=== PATIENT | female | born 1995 | race Caucasian/White ===

== ENCOUNTER 2017-11-12 15:18 | Outpatient (CLI) | payer BC, SELFPAY ==
[2017-11-12 15:47] VITALS: BMI 25.1
[2017-11-12 15:50] VITALS: BP 100/62; PULSE 119; RESP 20; TEMP 36.9; O2SAT 99
[2017-11-12 18:40] VITALS: BP 113/68; PULSE 113; RESP 18; TEMP 37.4; O2SAT 100
== END 2017-11-12 18:40 | disposition home or self-care (01) ==
LOC: INF 15:22
PROVIDERS: PCP Family Medicine; Visit Provider Family Medicine
DX: R19.7 Diarrhea, unspecified (principal)
CPT/HCPCS: 96360

== ENCOUNTER → 2020-10-14 16:52 | Outpatient (CLI) | payer BC, SELFPAY ==
[2020-10-14 18:14] LABS: Free T4 (Free Thyroxine) 1.69 ng/dl (0.78-2.19)
[2020-10-14 18:29] LABS: Thyroid Stimulating Hormone 0.15 uIU/mL (0.465-4.68)
== END ==
PROVIDERS: Visit Provider Physician Assistant
DX: E03.9 Hypothyroidism, unspecified (principal)
CPT/HCPCS: 36415; 84439; 84443

== ENCOUNTER → 2021-03-01 12:08 | Outpatient (CLI) | payer BC, SELFPAY ==
[2021-03-01 15:06] LABS: HCG,Quantitative < 2 mIU/ml (0-5.42)
[2021-03-02 09:54] LABS: Progesterone 0.1 ng/mL (.)
== END ==
DX: Z32.00 Encounter for pregnancy test, result unknown (principal)
CPT/HCPCS: 36415; 84144; 84702

== ENCOUNTER → 2021-09-05 06:45 | Outpatient (CLI) | payer BC, SELFPAY ==
[2021-09-05 07:40] LABS: HCG,Quantitative 432 mIU/ml (0-5.42)
== END ==
PROVIDERS: Visit Provider Obstetrics & Gynecology Reproductive Endocrinology
DX: Z32.00 Encounter for pregnancy test, result unknown (principal)
CPT/HCPCS: 36415; 84702

== ENCOUNTER → 2021-09-09 07:05 | Outpatient (CLI) | payer BC, SELFPAY ==
[2021-09-09 07:52] LABS: HCG,Quantitative 1544 mIU/ml (0-5.42)
== END ==
PROVIDERS: Visit Provider Obstetrics & Gynecology Reproductive Endocrinology
DX: Z32.01 Encounter for pregnancy test, result positive (principal)
CPT/HCPCS: 36415; 84702

== ENCOUNTER 2023-09-06 07:47 | Outpatient (CLI) | payer BC, SELFPAY ==
[2023-09-06 08:45] LABS: HCG,Quantitative 6448 mIU/ml (0-5.42)
== END 2023-09-06 23:59 ==
LOC: LAB 07:48
PROVIDERS: PCP Family Medicine; Visit Provider Obstetrics & Gynecology Reproductive Endocrinology
DX: Z32.02 Encounter for pregnancy test, result negative (principal)
CPT/HCPCS: 36415; 84702

== ENCOUNTER 2024-06-30 07:28 | Outpatient (CLI) | payer BC, SELFPAY ==
--- NOTE | 2024-06-30 | US_ITS ---
FINAL REPORT TECHNIQUE: Sonographic images of the right upper quadrant were obtained. CLINICAL HISTORY: ELEVATED LIVER FUNCTION LEVELS COMPARISON: None FINDINGS: PANCREAS: Unremarkable. LIVER: There is fatty infiltration of the liver. No focal hepatic lesion. No intrahepatic biliary ductal dilatation. GALLBLADDER: The gallbladder is small and contracted. No gallstones are identified.. No gallbladder wall thickening or pericholecystic fluid. COMMON DUCT: 2 mm. Normal for age. RIGHT KIDNEY: The right kidney measures 9.9 cm. There is no hydronephrosis, mass, or stone. FREE FLUID: None. IMPRESSION: Fatty liver. Reviewed, Interpreted and Dictated by Wes Medeiros MD Transcribed by Lizeth Lambert Authenticated and [facility]
== END 2024-06-30 23:59 | disposition home or self-care (01) ==
LOC: RAD 07:29
PROVIDERS: PCP Family Medicine; Visit Provider Physician Assistant
DX: R79.89 Other specified abnormal findings of blood chemistry (principal)
CPT/HCPCS: 76705

== ENCOUNTER 2024-07-10 12:08 | Outpatient (CLI) | payer BC, SELFPAY ==
[2024-07-10 12:29] LABS: Basophils % 0.2 % (0.1-2.0); Eosinophils % 0.5 % (0.1-12.0); Hematocrit 39.7 % (37.0-47.0); Hemoglobin 12.8 g/dL (12.2-16.2); Lymphocytes # 1.9 K/mm3 (0.7-4.5); Lymphocytes % 32.2 % (10-50); Mean Corpuscular HGB Conc 32.2 g/dL (31.8-35.4); Mean Corpuscular Hemoglobin 28.8 pg (27.0-31.2); Mean Corpuscular Volume 89.4 fl (81-99); Mean Platelet Volume 9.3 fl (7.4-10.4); Monocytes # 0.6 K/mm3 (0.1-1.0); Monocytes % 10.3 % (1.7-9.3); Neutrophils # 3.3 K/mm3 (1.8-7.8); Neutrophils % 56.5 % (37.0-80.0); Platelet Count 354 K/mm3 (142-424); Red Blood Count 4.44 M/mm3 (4.20-5.40); White Blood Count 5.8 K/mm3 (4.8-10.8)
[2024-07-10 12:44] LABS: Ammonia < 9 umol/L (9-30)
[2024-07-10 13:28] LABS: Albumin Level 1.7 g/dl (3.5-5.0); Chloride 104 mmol/L (98-107)
[2024-07-10 13:29] LABS: Potassium 4.4 mmoL/L (3.5-5.1); Sodium 135 mmol/L (136-145)
[2024-07-10 13:31] LABS: Alanine Aminotransferase 173 U/L (12-78); Alkaline Phosphatase 144 U/L (38-126); Anion Gap 6.4 mEq/L (5-15); Aspartate Amino Transferase 125 U/L (14-36); Blood Urea Nitrogen 11 mg/dl (7-17); Carbon Dioxide 29 mmol/L (22.0-30.0); Estimated Glomerular Filt Rate 148 ml/min (>60); GFR (African American) 179 ML/MIN (>60)
[2024-07-10 13:32] LABS: Albumin/Globulin Ratio 0.8 (1.1-1.8); Calcium 7.1 mg/dl (8.4-10.2); Globulin 2.1 g/dL (1.3-3.2); Glucose 143 mg/dl (74-100); Iron 74 ug/dL (37-170); Total Protein,Serum 3.8 g/dl (6.3-8.2)
[2024-07-10 13:35] LABS: Bilirubin,Total < 0.1 mg/dl (0.2-1.3)
[2024-07-10 13:41] LABS: Total Iron Binding Capacity 233 ug/dL (265-497)
[2024-07-10 14:08] LABS: Ferritin 13.9 ng/ml (6.24-137)
[2024-07-11 08:25] LABS: Immunoglobulin A, Qn 349 mg/dL (87-352); Immunoglobulin G, Qn 543 mg/dL (586-1602); Immunoglobulin M, Qn 131 mg/dL (26-217)
[2024-07-11 12:10] LABS: Actin (Smooth Muscle) Antibody 14 Units (0-19); Mitochondrial (M2) Antibody <20.0 Units (0.0-20.0)
[2024-07-11 13:08] LABS: Angiotensin Converting Enzyme 81 U/L (14-82); Antinuclear Antibodies (ANA) Negative (Negative)
[2024-07-11 14:09] LABS: Deamidated Gliadin Abs, IgA >150 units (0-19); Deamidated Gliadin Abs, IgG >150 units (0-19); Liver-Kidney Microsomal Ab 1.1 Units (0.0-20.0); Tissue Transglutaminase IgA Ab >100 U/mL (0-3); Tissue Transglutaminase IgG Ab 6 U/mL (0-5)
[2024-07-12 00:08] LABS: ALT (SGPT) P5P 189 IU/L (0-40); AST (SGOT) P5P 119 IU/L (0-40); Alpha 2-Macroglobulins, Qn 147 mg/dL (110-276); Apolipoprotein A-1 80 mg/dL (116-209); Bilirubin, Total 0.1 mg/dL (0.0-1.2); Cholesterol, Total 104 mg/dL (100-199); Fibrosis Score 0.03 (0.00-0.21); GGT 19 IU/L (0-60); Glucose 158 mg/dL (70-99); Haptoglobin 131 mg/dL (33-278); NASH Score 0.59 (0.00-0.25); Steatosis Score 0.74 (0.00-0.40); Triglycerides 76 mg/dL (0-149)
[2024-07-12 15:17] LABS: Endomysial IgA Antibody Positive (Negative)
[2024-07-24 19:27] LABS: Alpha-1-Antitrypsin 181 mg/dL (100-188)
== END 2024-07-10 23:59 | disposition home or self-care (01) ==
LOC: LAB 12:10
PROVIDERS: PCP Family Medicine; Visit Provider Nurse Practitioner Family
DX: R79.89 Other specified abnormal findings of blood chemistry (principal)
CPT/HCPCS: 36415; 80053; 82103; 82104; 82140; 82164; 82728; 82784; 83516; 83540; 83550; 85025; 85610; 86038; 86255; 86256; 86376

== ENCOUNTER 2024-07-12 16:09 | Outpatient (CLI) | payer BC, SELFPAY ==
[2024-07-12 16:15] LABS: Adenovirus F 40/41, stool Not Detected (NotDetected); Astrovirus Not Detected (NotDetected); Campylobacter Not Detected (NotDetected); Clostridium Difficile A/B, PCR Not Detected (NotDetected); Cryptosporidium Not Detected (NotDetected); Cyclospora Cayetanesis Not Detected (NotDetected); Entamoeba histolytica Not Detected (NotDetected); Enteroaggregative E coli Not Detected (NotDetected); Enteropathogenic E coli Not Detected (NotDetected); Enterotoxigenic E coli Not Detected (NotDetected); Giardia lamblia Not Detected (NotDetected); Norovirus Not Detected (NotDetected); Plesimonas Shigalloides, PCR Not Detected (NotDetected); Rotavirus A Not Detected (NotDetected); Salmonella, PCR Not Detected (NotDetected); Sapovirus Not Detected (NotDetected); Shiga-like toxin E coli Not Detected (NotDetected); Shigella Enterovasive E coli Not Detected (NotDetected); Vibrio Cholerae Not Detected (NotDetected); Vibrio, PCR Not Detected (NotDetected); Yersinia Entercolitica, PCR Not Detected (NotDetected)
[2024-07-15 02:08] LABS: Calprotectin, Fecal 293 ug/g (0-120)
[2024-07-15 15:24] LABS: Pancreatic Elastase, Fecal 420 (>200)
== END 2024-07-12 23:59 | disposition home or self-care (01) ==
LOC: LAB 16:10
PROVIDERS: PCP Family Medicine; Visit Provider Nurse Practitioner Family
DX: R19.7 Diarrhea, unspecified (principal)
CPT/HCPCS: 82656; 83993; 87506

== ENCOUNTER 2024-07-26 09:30 | Day surgery (SDC) | payer BC, SELFPAY ==
[2024-07-24 17:02] VITALS: BMI 25.9
[2024-07-26 10:13] VITALS: BP 95/72; PULSE 71; RESP 18; O2SAT 100
[2024-07-26 10:26] LABS: POC Glucose,Bedside 99 (70-110)
[2024-07-26 11:43] LABS: Urine Pregnancy, HCG Qual. Negative (Negative)
--- NOTE | 2024-07-26 11:49 | EXP.ANES.CKL ---
[facility] Disclaimer: The information contained in this section may have been updated after the patient was seen, as this information can be updated by other users. Family History Grandfather Pancreatic cancer Other Cancer Social History (Updated 07/21/24 @ 10:13 by Kimberlee Leon RN) Smoking Status: Never smoker alcohol intake: never substance use type: denies use current occupational status: employed and student Travel in the last 8 weeks: None household members: spouse housing: house caffeine: Yes Have you lived/traveled outside US in past 30 days?: No Contact w/someone who lives/traveled outside US past 30 days?: No Exposure to someone with infectious disease in past 14 days?: No Do you have a fever (greater than 100.4 F or 38 C)?: No Have you tested positive for COVID-19: No Exposed to someone with COVID-19 in past 14 days?: No Do you have a sore throat?: No Do you have a cough?: No Do you have any weakness?: No Are you experiencing any nausea/vomitting?: No Do you have any diarrhea?: No Are you experiencing any unusual bleeding?: No Do you have any muscle aches/pain?: No Do you have any abdominal pain?: No Are you experiencing loss of taste or smell?: No [facility] Anesthesia Checklist Patient Identification Patient Identification: Verbal (Name & ) Structural Data Admitted From: Home Planned Operative Procedure/s: egd NPO Status Verified Time NPO: 00:00 Airway Assessment Mallampati Score:: Class II C-Spine Mobility Assessed: Yes TMJ Mobility Assessed: Yes Dentition: Good Dentition Neurological Assessment Level of Consciousness: Awake, Alert and Appropriate Anesthesia Plan Anesthesia Risk discussed: Yes Anesthesia Plan: Verified ASA Class: II Anesthesia Type: MAC
--- NOTE | 2024-07-26 11:56 | EXP.HP ---
History of Present Illness *Admission Date: 07/26/24 *Reason for visit:: Positive celiac serologies *History of present illness: Mrs. Pollack is a 29-year-old female with elevated liver chemistries. Subsequent labs showed strongly positive celiac serologies. She is here for diagnostic upper endoscopy with confirmatory duodenal biopsies. The examination is deemed medically necessary for endoscopy. The patient has been seen, interviewed and examined prior to the procedure by both myself and the anesthesia provider. [facility] Disclaimer: The information contained in this section may have been updated after the patient was seen, as this information can be updated by other users. Family History Grandfather Pancreatic cancer Other Cancer Social History (Updated 07/21/24 @ 10:13 by Kimberlee Leon RN) Smoking Status: Never smoker alcohol intake: never substance use type: denies use current occupational status: employed and student Travel in the last 8 weeks: None household members: spouse housing: house caffeine: Yes Have you lived/traveled outside US in past 30 days?: No Contact w/someone who lives/traveled outside US past 30 days?: No Exposure to someone with infectious disease in past 14 days?: No Do you have a fever (greater than 100.4 F or 38 C)?: No Have you tested positive for COVID-19: No Exposed to someone with COVID-19 in past 14 days?: No Do you have a sore throat?: No Do you have a cough?: No Do you have any weakness?: No Are you experiencing any nausea/vomitting?: No Do you have any diarrhea?: No Are you experiencing any unusual bleeding?: No Do you have any muscle aches/pain?: No Do you have any abdominal pain?: No Are you experiencing loss of taste or smell?: No Other Medical History Have you received the Flu Vaccine for this season: No Have you received the Pneumonia Vaccine: No Review of Systems Review of Systems Review of systems (narrative): Negative *Cardiovascular Comments: Negative *Gastrointestinal Comments: Negative *Genitourinary Comments: Negative *Musculoskeletal Comments: Negative *Neurologic Comments: Negative Meds Home Medications and Allergies Home Medications ?Medication ?Instructions ?Recorded ?Confirmed ?Type insulin lispro 100 unit/mL 1.1 unit SQ CONT Diabetes 12/28/17 07/26/24 History subcutaneous cartridge (Humalog U-100 Insulin) ferrous sulfate 27 mg iron tablet 27 mg PO DAILY 07/10/24 07/26/24 History levothyroxine 137 mcg tablet 137 mcg PO DAILY 07/10/24 07/26/24 History (Synthroid) vitamin#30 30 mg iron-10 30 cap PO DAILY 07/10/24 07/26/24 History mg iron-folic acid 1 mg-omg3 capsule spironolactone 25 mg tablet 25 mg PO DAILY 07/10/24 07/26/24 History (Aldactone) New Prescriptions to Start Prescriptions: Allergies Allergy/AdvReac Type Severity Reaction Status Date / Time No Known Allergies Allergy Verified 07/26/24 10:12 Exam Data for Last 24 hours Vital signs and Labs for Last 24 Hours: Pulse Resp BP Pulse Ox O2 Del Method 71 18 95/72 L 100 Room Air 07/26/24 10:13 07/26/24 10:13 07/26/24 10:13 07/26/24 10:13 07/26/24 10:13 Laboratory Results - last 24 hr 07/26/24 10:17: POC Glucose 99 07/26/24 10:20: Urine HCG, Qual Negative I & O for Last 24 hours: Intake & Output 07/23/24 07/24/24 07/25/24 07/26/24 23:59 23:59 23:59 23:59 Weight 137 lb *Routine HEENT Exam Head: Present normocephalic Eye: Present EOMI and PERRL ENT: Present mucous membranes moist *Routine Neck Exam Neck: Present supple *Routine Respiratory Exam Respiratory: Present CTA bilaterally *Routine Cardiovascular Exam Cardiovascular: Present RRR *Routine Abdominal Exam Abdominal: Present soft and normoactive bowel sounds; Absent tenderness *Routine Rectal Exam Rectal:: deferred *Routine Genitalia Exam Genitalia:: deferred *Routine Extremities Exam Extremities: Absent cyanosis, clubbing or edema *Routine Skin Exam Skin: Present warm; Absent rash *Routine Neurological Exam Neurological: Present alert and oriented X3 Assessment and Plan *Assessment and plan (1) Celiac disease: Status: Acute Category: Medical Code(s): K90.0 - Celiac disease (2) Diarrhea: Status: Acute Category: Medical Code(s): R19.7 - Diarrhea, unspecified Plan A/P: 1. Positive celiac serologies and new diagnosis of presumptive celiac disease is the preprocedural diagnosis. Confirmation with duodenal biopsies is warranted. The patient will be anesthetized/sedated using MAC sedation. The patient has been seen and examined. Cardiac and lung assessment prior to the examination is stable. Proceed with planned EGD
[2024-07-26 12:00] VITALS: O2SAT 99
--- NOTE | 2024-07-26 12:10 | HMH.PROCNOTE ---
[facility] Procedure Note Date: 07/26/24 Time: 12:20 Procedure Note:: Upper Endoscopy Procedure Report: Esophagogastroduodenoscopy with cold biopsies Endoscopost: Main Mendenhall II, MD Referring Physician: Pantera Jean MD Date of Procedure: July 26, 2024 Equipment: Olympus GIF 190 standard upper endoscope Sedation: MAC sedation Indications: Mrs. Pollack is a 29-year-old female here for diagnostic upper endoscopy. The patient is 3 months and had cholestasis of in the third trimester. Her liver chemistries have improved since childbirth. However, earlier last month, the liver chemistries increased again with AST 309, ALT 263 and alkaline phosphatase 140. 10 days later, these were 189, 195 and 133 respectively. Her viral hepatitis panel was negative. The patient has had diarrhea since the beginning of May which can be nocturnal. She was having 4-6 watery bowel movements daily. She reports no blood or mucus. She has had no melena, dyspepsia or dysphagia. Her fecal calprotectin was 293 (mildly elevated) and her stool elastase was 420 mcg/g (normal). Her PCR panel was negative. Her most recent liver chemistries were AST 119, ALT 173 and alkaline phosphatase 144 and this was on 07/10/2024. Hepatic fibrotic markers showed no hepatic fibrosis (stage F0). Her celiac testing showed marked elevation of her celiac serologies (positive anti-Endo mesial IgA antibody, tissue transglutaminase IgA greater than 100 nucleate and IgG antibody greater than 150 and gliadin IgA antibody greater than 150. Her smooth muscle antibody was 14 with mitochondrial antibody less than 20. Her CHRISTO was negative. She had normal IgA level. Procedure: Prior to the procedure, a history and physical exam was performed, and patient's medications and allergies were reviewed. The risks, benefits and alternatives of the sedation and procedure were discussed with the patient. All questions were answered and informed consent was obtained. The patient was brought to the procedure room. Patient identification and proposed procedure were verified by the physician and the nurse. The patient was placed in a left lateral decubitus position and the scope was passed under direct vision. Throughout the procedure, the patient's blood pressure, pulse, and oxygen saturations were monitored continuously. The upper GI endoscopy was accomplished without difficulty. The patient tolerated the procedure well. Findings: The scope was passed directly into the upper esophagus and advanced to the third portion of the duodenum. There was some scalloping of the conniventes in the post bulbar duodenum and biopsies were obtained. There was a micronodular appearance to the mucosa in the bulb and biopsies were obtained. This was highly characteristic of celiac disease. The scope was withdrawn through a normal pylorus and of the stomach. There was mild reticular pattern of the body and fundus consistent with very mild chronic gastritis chronic gastritis. Biopsies were taken along the lesser curvature to rule out H. pylori. Upon retroflexion there was a very small sliding 1 to 2 cm hiatal hernia. The scope was then withdrawn into the esophagus. There was no evidence of reflux esophagitis or Dial's. The remainder of the esophageal mucosa was normal. Impression: 1. Scalloping of duodenal conniventes with mucosal changes consistent with celiac disease?status post biopsies for confirmation 2. Very mild chronic gastritis Plan: I will follow-up the biopsies. I will refer to dietitian for gluten-free diet. I will discuss signs with the patient and family. Her autoimmune hepatitis serologies were normal. Her abdominal ultrasound showed some steatosis. Her transaminases are improving. She should have a clinical improvement with a gluten-free diet in terms of her diarrhea. She did have a mildly elevated fecal calprotectin which may be related to the celiac. There is a relationship between celiac and IBD. If her diarrhea persist, I would consider colonoscopy as well.
[2024-07-26 12:24] VITALS: BP 98/64; PULSE 74; RESP 15; TEMP 36.6; O2SAT 96
[2024-07-26 12:34] VITALS: BP 98/62; PULSE 72; RESP 16; O2SAT 97
[2024-07-26 12:44] VITALS: BP 100/68; PULSE 86; RESP 16; O2SAT 98
[2024-07-26 12:54] VITALS: BP 101/71; PULSE 66; RESP 18; O2SAT 98
== END 2024-07-26 13:13 | disposition home or self-care (01) ==
PROVIDERS: PCP Family Medicine; Visit Provider Internal Medicine Gastroenterology
PROC: 0DJ08ZZ Inspection of Upper Intestinal Tract, Via Natural or Artificial Opening Endoscopic (ICD-10-PCS; CPT 43239; principal; 2024-07-26 11:30)
DX: K90.0 Celiac disease (principal); R19.7 Diarrhea, unspecified; K44.9 Diaphragmatic hernia without obstruction or gangrene; K29.50 Unspecified chronic gastritis without bleeding; K31.89 Other diseases of stomach and duodenum
CPT/HCPCS: 43239; 81025; 82962

== ENCOUNTER 2024-08-23 15:45 | Outpatient (CLI) | payer BC, SELFPAY ==
[2024-08-23 16:38] LABS: Basophils % 0.5 % (0.1-2.0); Eosinophils # 0.1 K/mm3 (0.0-0.4); Eosinophils % 1.6 % (0.1-12.0); Hematocrit 37.6 % (37.0-47.0); Hemoglobin 12.3 g/dL (12.2-16.2); Lymphocytes # 1.7 K/mm3 (0.7-4.5); Lymphocytes % 28.3 % (10-50); Mean Corpuscular HGB Conc 32.7 g/dL (31.8-35.4); Mean Corpuscular Hemoglobin 31.3 pg (27.0-31.2); Mean Corpuscular Volume 95.7 fl (81-99); Mean Platelet Volume 9.2 fl (7.4-10.4); Monocytes # 0.6 K/mm3 (0.1-1.0); Monocytes % 9.9 % (1.7-9.3); Neutrophils # 3.6 K/mm3 (1.8-7.8); Neutrophils % 58.6 % (37.0-80.0); Platelet Count 380 K/mm3 (142-424); Red Blood Count 3.93 M/mm3 (4.20-5.40); Red Cell Distribution Width 13.6 % (11.5-17.5); White Blood Count 6.2 K/mm3 (4.8-10.8)
[2024-08-23 18:17] LABS: Albumin Level 4.3 g/dl (3.5-5.0); Chloride 101 mmol/L (98-107)
[2024-08-23 18:18] LABS: Potassium 4.3 mmoL/L (3.5-5.1); Sodium 137 mmol/L (136-145)
[2024-08-23 18:20] LABS: Blood Urea Nitrogen 21 mg/dl (7-17); Estimated Glomerular Filt Rate 100 ml/min (>60); GFR (African American) 121 ML/MIN (>60)
[2024-08-23 18:21] LABS: Alanine Aminotransferase 91 U/L (12-78); Albumin/Globulin Ratio 1.6 (1.1-1.8); Alkaline Phosphatase 169 U/L (38-126); Anion Gap 12.3 mEq/L (5-15); Aspartate Amino Transferase 61 U/L (14-36); Bilirubin,Total 0.3 mg/dl (0.2-1.3); Calcium 9.5 mg/dl (8.4-10.2); Carbon Dioxide 28 mmol/L (22.0-30.0); Globulin 2.7 g/dL (1.3-3.2); Glucose 121 mg/dl (74-100)
[2024-08-24 14:12] LABS: Tissue Transglutaminase IgA Ab >100 U/mL (0-3); Tissue Transglutaminase IgG Ab 9 U/mL (0-5)
== END 2024-08-23 23:59 | disposition home or self-care (01) ==
LOC: LAB 15:46
PROVIDERS: PCP Family Medicine; Visit Provider Nurse Practitioner Family
DX: K90.0 Celiac disease (principal)
CPT/HCPCS: 36415; 80053; 83516; 85025

== ENCOUNTER 2024-09-08 09:18 | Outpatient (CLI) | payer BC, SELFPAY ==
--- NOTE | 2024-09-08 09:19 | XR_ITS ---
FINAL REPORT TECHNIQUE: Bone densitometry calculations of the lumbar spine and left hip were obtained. CLINICAL HISTORY: celiac disease COMPARISON: None FINDINGS: Using L1-4, the bone mineral density of the spine is 0.760 g/cm2, corresponding to T-score of -2.6. Using the left hip, the bone mineral density of the femoral neck is 0.676 g/cm2, corresponding to a T-score of -2.2. Using the right hip, the bone mineral density of the femoral neck is 0.717 g/cm?, corresponding to a T-score of -1.8. NOTE: T-score: Standard deviation compared with peak bone mass of young adult mean. *Following the recommendations of the International Society of Bone Densitometry, classification of hip BMD is based on the lower of two T-scores; total hip or femoral neck. IMPRESSION: Osteoporosis: Lowest T-score is at or below -2.5. This patient's T-score meets the World Health Organization criteria for osteoporosis. Reviewed, Interpreted and Dictated by Dorita Alves MD Transcribed by Natali Howard Authenticated and [facility]
== END 2024-09-08 23:59 | disposition home or self-care (01) ==
LOC: RAD 09:19
PROVIDERS: PCP Family Medicine; Visit Provider Nurse Practitioner Family
DX: K90.0 Celiac disease (principal)
CPT/HCPCS: 77080

== ENCOUNTER 2024-12-05 12:47 | Outpatient (CLI) | payer BC, SELFPAY ==
--- OUTSIDE RECORDS SUMMARY | 2024-06-23 09:30 | XMS_ITS ---
Author Organization [facility] Address [address] [place] [id number] Care Team Providers Care Computer Aided Design Drafter Name Role Phone Tone Jean Primary Care Provider Katelyn Bernal Unavailable [phone] Allergies No Known Allergies Results Component Value Reference Range Notes P-Comprehensive Metabolic Pa bhargavi (CMP) Reviewed date:06/28/2024 09:14:41 AM Interpretation: Performing Lab: Notes/Report: Test performed by [facility] [address] [place] [address] , [address], [place] [address] Ganesh Finley MD, Ict Programmer CLIA: [id number] Sodium 141 135-145 mmol/L Potassium 4.0 3.5-5.3 mmol/L Chloride 109 97-108 mmol/L CO2 24 22-32 mmol/L Glucose 124 65-99 mg/dL BUN 9 6-20 mg/dL Creatinine 0.57 0.50-1.00 mg/dL Calcium 7.4 8.6-10.4 mg/dL eGFR by Creatinine 127 >59 mL/min/1.73m2 Protein 3.9 6.0-8.3 g/dL Albumin 2.0 3.5-5.3 g/dL Alkaline Phosphatase 140 35-121 IU/L ALT (SGPT) 263 <5-47 IU/L AST (SGOT) 309 <5-40 IU/L Bilirubin, Total <0.2 <0.2-1.2 mg/dL A/G Ratio 1.1 1.1-2.5 P-Hepatitis Acute Profile Reviewed date:06/28/2024 09:14:41 AM Interpretation: Performing Lab: Notes/Report: Test performed by [facility] [address] [place] [address] , [address], [place] [address] Ganesh Finley MD, Ict Programmer CLIA: [id number] Hepatitis A Antibody, IgM Nonreactive Nonreactive Hepatitis B Core Antibody (HBcAb) IgM Nonreactive Non reactive Hepatitis B Surface Antigen (HBsAg) Nonreactive Nonre active Hepatitis C Antibody (HCV) IgG Nonreactive Nonreactiv e Calculated Calcium Reviewed date:06/28/2024 09:14:41 AM Interpretation: Performing Lab: Notes/Report: Test performed by [facility] [address] [place] [address] , [address], [place] [address] Ganesh Finley MD, Ict Programmer CLIA: [id number] Calculated Calcium 9.0 8.5-10.3 mg/dL Ultrasound : Right Upper Jovan drcarina Reviewed date:07/04/2024 03:51:17 PM Interpretation:fatty liver Performing Lab: Notes/Report: fatty liver Reason For Referral Diagnosis 1 Elevated liver funct ion tests (R79.89) [facility]erring Provider First Name Katelyn Referring Provider Last Name Dolores Referring Provider Speciality Physician Art Sales Consultant Referred Provider Gastroenterology, . Referred Provider Specialty Gastroentero logy General Notes Katelyn Bernal 2024 2:05:56 PM > Pt needs first available with Deborah Freeman Brynn 06/23/2024 2:58:57 PM > faxed to Dr. Mendenhall officeDeborah Brynn 07/05/2024 10:42:02 AM > 07/10/2024 at 11:15am Referral Priority Routine REASON FOR VISIT POST DEPRESSION-abd lab work Medications Medication SIG (Take, Route, Frequency, Duration) Notes Start Date End Date Status 28-0.8 MG 1 tablet Orally Once a day for 30 day(s) Active Iron 325 (65 Fe) MG 1 tablet Orally Thre e times a Week for 30 day(s) Activ e HumaLOG 100 UNIT/ML insulin pump subcutaneously for 0 day(s) Active Levothyroxine Sodium 25 MCG 1 tablet in the morning on an empty stomach Orally Once a day for 30 day(s) Active Vital Signs Blood pressure systolic 100 mm Hg 01/03/20 25 Blood pressure diastolic 60 mm Hg 025 Height 60.50 in 06/23/2024 Weight 132.0 lbs 06/23/2024 BMI 25.35 kg/m2 06/23/2024 Encounters Encounter Location Date Provider Diagnosis [facility] [address] [facility] [address] [place] [id number] 06/23/2024 Katelyn Bernal Elevated liver funct ion tests R79.89 ; Chronic diarrhea K52.9 ; Bloating R14.0 and Post depression F53.0 Assessments Encounter Date Diagnosis (ICD Code) Assessment Notes Treatment Notes Treatment Clinical Notes Section Notes 06/23/2024 Elevated liver function tests (ICD-10 - R79.89) Will recheck LFT's as well as a hepatitis panel. Will get a RUQ U/S and make GI referral. 06/23/2024 Chronic diarrhea (ICD-10 - K52.9) Patient will obtain a sample for a TEN stool panel. 06/23/2024 Bloating (ICD-10 - R14.0) 06/23/2024 Post depression (ICD-10 - F53.0) Can likely start on sertraline but we will await lab results first. Plan Of Treatment Treatment Notes Assessment Notes Elevated liver function tests Will reche ck LFT's as well as a hepatitis panel. Will get a RUQ U/S and make GI referral. Chronic diarrhea Patient will obtain a sample for a TEN stool panel. Post depression Can likely start on sertraline but we will await lab results first. Referrals Referral Date Details 06/23/2024 06/23/2024, . Gastro enterology Next Appt Details Follow Up: via phone to repo rt test results, Reason: Progress Notes * ANNIE MARIEDOB: 7 (29 yo F)Acc No.[id number]:06/23/2024 Progress Notes Patient: ANNIE BLACKWELL LORRAINE Provider: CESIA Silverman :1995 A ge:28 Y S ex:Female Date:06/23/2024 Address:[address] [place], [place] [phone] Pcp:Tone Jean Subjective: * Chief Complaints: * 1 . POST DEPRESSION-abd lab work. * HPI: H PI: 28 year old female presents with c/o Patient is here today for?Pt needs lab work done. She just had a baby 2 months ago. She had cholestasis during this and her LFT's were elevated. After delivery, her numbers came back down to almost normal. She has since had bloating, abdominal swelling, and diarrhea. She called her OBGYN and they told her to see her PCP as everything should have resolved with delivery. She did have a scheduled appt with her membership correspondent for her thyroid and type 1 DM and they did labs.? Her LFT's were back up in the mid 200's. . P sychology: c/o depression P t is here for PPD. She did not have this with the first child but has felt down and depressed since the of her second child. . * ROS: D ERMATOLOGY: no R elise. n o H alexandra. G ASTROENTEROLOGY: no V omiting. n o D iarrhea. U ROLOGY: no D ifficulty urinating. n o B lood in urine. * Medical History: t ype 1 diabetes, followed by Endo, Thyroid problems, Cholestasis of (2nd ), Mild preeclampsia (1st ). * Surgical History: w isdom teeth extracted 07/2011. * Hospitalization/Major Diagno stic Procedure: V iral infection Feb 2007. * Family History: F ather: alive. M other: alive. M aternal Grand Father: diagnosed with Cancer. 1 brother(s) , 1 sister(s) . 1 son(s) , 1 daughter(s) . . * Social History: C URRENT TOBACCO USE S moking Status: Patient does NOT smoke. C affeine: coffee and soft drinks once a day. Home smoke detector use: yes. Past smoking status: no, Smoking status: Does not smoke. * Medications: T aking Iron 325 (65 Fe) MG Tablet 1 tablet Orally Three times a Week , Taking 28-0.8 MG Tablet 1 tablet Orally Once a day , Taking Levothyroxine Sodium 25 MCG Tablet 1 tablet in the morning on an empty stomach Orally Once a day , Taking HumaLOG 100 UNIT/ML Solution insulin pump subcutaneously , Medication List reviewed and reconciled with the patient * Allergies: N .K.D.A. Objective: * Vitals: W t:132.0, Temp:98.5, BP:100/60, Nurse:MMEliane, Ht: 60.50, BMI:25.35. * Examination: G eneral Examination: General Appearance: N AD. HEENT: u nremarkable. Oral cavity: n o lesions, mucosa moist and WNL, no erythema. Neck: s upple, no lymphadenopathy. Chest: n ormal shape and expansion. Heart: R SR. Lungs: c lear to auscultation. Abdomen: bowel sounds present, soft and nontender, no organomegaly or masses, no guarding or rigidity. Neurologic Exam: I ntact, gait normal. Skin: n ormal, no rash. Peripheral pulses: n ormal (2+) bilaterally. Extremities: n o leg edema. P sychology: Grooming : a dequate. Eye contact : n ormal. Mood : p leasant. Assessment: * Assessment: 1. E levated liver function tests - R79.89 (Primary) 2 . C hronic diarrhea - K52.9 3 . B loating - R14.0 4 . P ost depression - F53.0 Plan: * Treatment: Value Reference Range A /G Ratio 1.1 L 1.1-2.5 - * A lbumin 2.0 L 3.5-5.3 - g/dL * A lkaline Phosphatase 140 H 35-121 - IU/L * A LT (SGPT) 263 H <5-47 - IU/L * A ST (SGOT) 309 H <5-40 - IU/L * B ilirubin, Total <0.2 <0.2-1.2 - mg/dL * B UN 9 6-20 - mg/dL * C alcium 7.4 L 8.6-10.4 - mg/dL * C hloride 109 H 97-108 - mmol/L * C O2 24 22-32 - mmol/L * C reatinine 0.57 0.50-1.00 - mg/dL * G lucose 124 H 65-99 - mg/dL * P otassium 4.0 3.5-5.3 - mmol/L * S odium 141 135-145 - mmol/L * P rotein 3.9 L 6.0-8.3 - g/dL * e GFR by Creatinine 127 >59 - mL/min/1.73m2 * Katelyn Bernal 06/28/2024 9:1 4:28 AM > see TE ?LAB: P-Hepatitis Acute Profile (Collection Date & Time - 06/23/2024 01:02 PM)* Value Reference Range H epatitis A Antibody, IgM Nonreactive Nonreactive - * H epatitis B Core Antibody (HBcAb) IgM Nonreactive Non reactive - * H epatitis B Surface Antigen (HBsAg) Nonreactive Nonre active - * H epatitis C Antibody (HCV) IgG Nonreactive Nonreactiv e - * Katelyn Bernal 06/28/2024 9:1 4:28 AM > see TE ?Imaging: Ultrasound : Right Upper Quadrant (Performed Date - 06/30/2024)? fatty liver* Katelyn Bernal 06/23/2024 2:0 6:20 PM >Amber Cabrera 06/27/2024 10:39:57 AM > no auth required; CPT code 07543; faxed to [facility] Katelyn Ferrer 07/04/2024 3:51:12 PM > see TE Notes: Will recheck LFT's as well as a hepatitis panel. Will get a RUQ U/S and make GI referral. ? Referral To:. Gastroenterology??Gastroenterology ?Reason: 2.?Chronic diarrhea? Notes: Patient will obtain a sample for a TEN stool panel.??3.?Post depression? Notes: Can likely start on sertraline but we will await lab results first.?? * Labs: * L ab: Calculated Calcium (Collection Date & Time - 06/23/2024 01:02 PM) Value Reference Range C alculated Calcium 9.0 8.5-10.3 - mg/dL * [facility], IT support 06/24/2024 05:35:05 : This order was created by the Interface. Katelyn Bernal 06/28/2024 9:14:28 AM > see TE * Follow Up: v ia phone to report test results * Billing Information: * Visit Code: 53661 Office Visit, New Pt., Level 3. * Procedure Codes: * Electronic signature of CESIA Godfrey on 12/05/2024 at 12:49 PM EDT Sign off status: Pending * Provider: CESIA Silverman Date: 0 06/23/2024 Generated for Printi ng/Faxing/eTransmitting on: 0 12/05/2024 12:49 PM EDT History and Physical Notes * HPI (History of Present Illness) Category Sub-Category Detail Notes Category Not es Psychology depression Pt is here for P PD. She did not have this with the first child but has felt down and depressed since the of her second child. HPI Patient is here today for Pt nee ds lab work done. She just had a baby 2 months ago. She had cholestasis during this and her LFT's were elevated. After delivery, her numbers came back down to almost normal. She has since had bloating, abdominal swelling, and diarrhea. She called her OBGYN and they told her to see her PCP as everything should have resolved with delivery. She did have a scheduled appt with her membership correspondent for her thyroid and type 1 DM and they did labs. Her LFT's were back up in the mid 200's. Examination Category Sub-Category Detail Notes Category Not es General Examination HEENT: unremarkable Heart: RSR Lungs: clear to auscultatio n Abdomen: bowel sounds present , soft and nontender, no organomegaly or masses, no guarding or rigidity Extremities: no leg edema General Appearance: NAD Skin: normal, no rash Neurologic Exam: Intact, gait normal Neck: supple, no lymphaden opathy Oral cavity: no lesions, mucosa m oist and WNL, no erythema Peripheral pulses: normal (2+) bilatera lly Chest: normal shape and exp ansion Psychology Grooming : adequate Eye contact : normal Mood : pleasant Consultation Request Notes Referral Date Referring Provider Referred Provider Not es 06/23/2024 Katelyn Bernal Gastroenterology, .
--- OUTSIDE RECORDS SUMMARY | 2024-06-28 11:30 | XMS_ITS ---
Author Organization [facility] Address [facility] [facility] [address] [place] [id number] Care Team Providers Care Forepart Rasper Name Role Phone Tone Jean Primary Care Provider Katelyn Bernal [phone] Results Component Value Reference Range Notes TEN-stool panel Reviewed date:07/05/2024 09:40:38 AM Interpretation:specimen rejected Performing Lab: Notes/Report: specimen rejected REASON FOR VISIT stool sample Encounters Encounter Location Date Provider Diagnosis [facility] [address] [place] [id number] 06/28/2024 Katelyn Bernal Chronic diarrhea K52 .9 Assessments Encounter Date Diagnosis (ICD Code) Assessment Notes Treatment Notes Treatment Clinical Notes Section Notes 06/28/2024 Chronic diarrhea (ICD-10 - K52.9) Plan Of Treatment No Information Progress Notes * DANGELOSandraANNIEDOB: 7 (29 yo F)Acc No.[id number]:06/28/2024 Patient: ANNIE BLACKWELL LORRAINE Provider: CESIA Silverman :1995 A ge:28 Y S ex:Female Date:06/28/2024 Address:[address] [place], [place] [phone] Pcp:Tone Jean Subjective: * Chief Complaints: * 1 . Stool sample. * Medical History: Objective: * Vitals: Assessment: * Assessment: 1. C hronic diarrhea - K52.9 Plan: * Treatment: * Billing Information: * Visit Code: * Procedure Codes: * Electronic signature of CESIA Godfrey on 12/05/2024 at 12:49 PM EDT Sign off status: Pending * Provider: CESIA Silverman Date: 0 06/28/2024 Generated for Chan aguilar/Layo/Syed on: 0 12/05/2024 12:49 PM EDT
--- OUTSIDE RECORDS SUMMARY | 2024-07-03 12:00 | XMS_ITS ---
Author Organization [facility] Address [address] [place] [id number] Care Team Providers Care Negative Spotter Name Role Phone Tone Jean Primary Care Provider JayKatelyn oconnell Unavailable [phone] Results Component Value Reference Range Notes P-Comprehensive Metabolic Pa bhargavi (CMP) Reviewed date:07/05/2024 03:21:18 PM Interpretation: Performing Lab: Notes/Report: Test performed by [facility] [address] [place] [address] , [address], [place] [address] Ganesh Finley MD, Commercial Kitchen Service Technician CLIA: [id number] Sodium 139 135-145 mmol/L Potassium 4.3 3.5-5.3 mmol/L Chloride 107 97-108 mmol/L CO2 26 22-32 mmol/L Glucose 74 65-99 mg/dL BUN 8 6-20 mg/dL Creatinine 0.61 0.50-1.00 mg/dL Calcium 7.0 8.6-10.4 mg/dL eGFR by Creatinine 125 >59 mL/min/1.73m2 Protein 3.8 6.0-8.3 g/dL Albumin 2.1 3.5-5.3 g/dL Alkaline Phosphatase 133 35-121 IU/L ALT (SGPT) 195 <5-47 IU/L AST (SGOT) 189 <5-40 IU/L Bilirubin, Total <0.2 <0.2-1.2 mg/dL A/G Ratio 1.2 1.1-2.5 Calculated Calcium Reviewed date:07/05/2024 03:21:08 PM Interpretation: Performing Lab: Notes/Report: Test performed by [facility] [address] [facility] , [address], [place] [address] Ganesh Finley MD, Commercial Kitchen Service Technician CLIA: [id number] Calculated Calcium 8.5 8.5-10.3 mg/dL REASON FOR VISIT BLOOD WORK Encounters Encounter Location Date Provider Diagnosis [facility] [address] [place] [id number] 07/03/2024 Katelyn Bernal Elevated ALT measure ment R74.01 Assessments Encounter Date Diagnosis (ICD Code) Assessment Notes Treatment Notes Treatment Clinical Notes Section Notes 07/03/2024 Elevated ALT measurement (ICD-10 - R74.01) Plan Of Treatment No Information Progress Notes * ANNIE MARIE LORRAINEDOB: 7 (29 yo F)Acc No.[id number]:07/03/2024 Patient: ANNIE BLACKWELL Provider: CESIA Silverman :1995 A ge:28 Y S ex:Female Date:07/03/2024 Address:[address] [place] [address] Pcp:Tone Jean Subjective: * Chief Complaints: * 1 . BLOOD WORK. * Medical History: Objective: * Vitals: Assessment: * Assessment: 1. E levated ALT measurement - R74.01 Plan: * Treatment: Value Reference Range A /G Ratio 1.2 1.1-2.5 - * A lbumin 2.1 L 3.5-5.3 - g/dL * A lkaline Phosphatase 133 H 35-121 - IU/L * A LT (SGPT) 195 H <5-47 - IU/L * A ST (SGOT) 189 H <5-40 - IU/L * B ilirubin, Total <0.2 <0.2-1.2 - mg/dL * B UN 8 6-20 - mg/dL * C alcium 7.0 L 8.6-10.4 - mg/dL * C hloride 107 97-108 - mmol/L * C O2 26 22-32 - mmol/L * C reatinine 0.61 0.50-1.00 - mg/dL * G lucose 74 65-99 - mg/dL * P otassium 4.3 3.5-5.3 - mmol/L * S odium 139 135-145 - mmol/L * P rotein 3.8 L 6.0-8.3 - g/dL * e GFR by Creatinine 125 >59 - mL/min/1.73m2 * Katelyn Bernal 07/05/2024 3: 21:13 PM > discussed with patient * Labs: * L ab: Calculated Calcium (Collection Date & Time - 07/03/2024 03:25 PM) Value Reference Range C alculated Calcium 8.5 8.5-10.3 - mg/dL * [facility], IT support 07/05/2024 06:05:09 : This order was created by the Interface.Katelyn Bernal 07/05/2024 3:21:02 PM > discussed with patient * Billing Information: * Visit Code: * Procedure Codes: * Electronic signature of CESIA Godfrey on 12/05/2024 at 12:49 PM EDT Sign off status: Pending * Provider: CESIA Silverman Date: 0 07/03/2024 Generated for Chan aguilar/Layo/eTransmitting on: 0 12/05/2024 12:49 PM EDT
--- OUTSIDE RECORDS SUMMARY | 2024-12-05 12:49 | XMS_ITS | Patient Health Record ---
Author Organization [facility] Address [address] [place] [id number] Care Team Providers Care Sail Finisher Machine Name Role Phone Tone Jean Primary Care Provider Katelyn Bernal Unavailable [phone] Allergies No Known Allergies Results Component Value Reference Range Notes P-Comprehensive Metabolic Pa bhargavi (CMP) Reviewed date:06/28/2024 09:14:41 AM Interpretation: Performing Lab: Notes/Report: Test performed by [facility] [address] [place] [address] , [address], [place] [address] Ganesh Finley MD, Inker Machine CLIA: [id number] Sodium 141 135-145 mmol/L Potassium 4.0 3.5-5.3 [...] Interpretation: Performing Lab: Notes/Report: Test performed by [facility] [address] [place] [address] , [place] [address] Ganesh Finley MD, Inker Machine CLIA: [id number] Hepatitis A Antibody, IgM Nonreactive Nonreactive Hepatitis B Core Antibody (HBcAb) IgM Nonreactive Non reactive Hepatitis B Surface Antigen (HBsAg) Nonreactive Nonre active Hepatitis C Antibody (HCV) IgG Nonreactive Nonreactiv e Calculated Calcium Reviewed date:06/28/2024 09:14:41 AM Interpretation: Performing Lab: Notes/Report: Test performed by [facility] [address] , [address], [place] [address] Ganesh Finley MD, Inker Machine CLIA: [id number] Calculated Calcium 9.0 8.5-10.3 mg/dL Ultrasound : Right Upper Jovan drant Reviewed date:07/04/2024 03:51:17 PM Interpretation:fatty liver Performing Lab: Notes/Report: fatty liver P-Comprehensive Metabolic Pa bhargavi (CMP) Reviewed date:07/05/2024 03:21:18 PM Interpretation: Performing Lab: Notes/Report: Test performed by [facility] [address] [place] [address] , [place] [address] Ganesh Finley MD, Inker Machine CLIA: [id number] Sodium 139 135-145 mmol/L Potassium 4.3 3.5-5.3 [...] Interpretation: Performing Lab: Notes/Report: Test performed by [facility] [address] [place] [address] , [address], [place] [address] Ganesh Finley MD, Inker Machine CLIA: [id number] Calculated Calcium 8.5 8.5-10.3 mg/dL TEN-stool panel Reviewed date:07/05/2024 09:40:38 AM Interpretation:specimen rejected Performing Lab: Notes/Report: specimen rejected Medications Medication SIG (Take, Route, Frequency, Duration) Notes Start Date End Date Status Spironolactone 25 MG Take [address] [facility] once daily for 30 Active 28-0.8 MG 1 tablet Orally Once a day for 30 day(s) Active Iron 325 (65 Fe) MG 1 tablet Orally Thre e times a Week for 30 day(s) Activ e HumaLOG 100 UNIT/ML insulin pump subcutaneously for 0 day(s) Active Levothyroxine Sodium 25 MCG 1 tablet in the morning on an empty stomach Orally Once a day for 30 day(s) Active Immunizations Vaccine Route Administration Date Status Comme nts xFlu shot-36 months and older IM Intramuscular 04/21/2007 Administered Problems Problem Type SNOMED Code ICD Code Onset Dates Problem Status W/U Status Risk Notes Problem Type I diabetes mellitus without complication (265721619) Type I [insulin dependent] [IDDM] [juvenile type] (250.01) Active confirmed Low Problem Iron deficiency anemia (79877547) IRON DEFIC ANEMIA NOS (280.9) Active confirmed Problem 230159395 Type 1 diabetes mellitus without complication (E10.9) Active confirmed Problem 50038962 Type 1 diabetes mellitus (E10.9) Active confirmed Vital Signs Blood pressure diastolic 60 mm Hg 06/23/2024 Height 60.50 in 06/23/2024 Blood pressure systolic 100 mm Hg 06/23/2024 Weight 132.0 lbs 06/23/2024 BMI 25.35 kg/m2 06/23/2024 Encounters Encounter Location Date Provider Diagnosis [facility]by [address] [place], [place] [id number] 06/23/2024 Katelyn Bernal Elevated liver funct ion tests R79.89 ; Chronic diarrhea K52.9 ; Bloating R14.0 and Post depression F53.0 [facility] [address] [place], [place] [id number] 06/28/2024 Katelyn Bernal Chronic diarrhea K52 .9 [facility] [address] [place], [place] [id number] 07/03/2024 Katelyn Bernal Elevated ALT measure ment R74.01 [facility] [address] [place], [place] [id number] 06/27/2024 Katelyn Bernal [facility] [address] [place], [place] [id number] 07/04/2024 Katelyn Bernal Assessments Encounter Date Diagnosis (ICD Code) Assessment Notes Treatment Notes Treatment Clinical Notes Section Notes 06/23/2024 Elevated liver function tests (ICD-10 - R79.89) Will recheck LFT's as well as a hepatitis panel. Will get a RUQ U/S and make GI referral. 06/23/2024 Chronic diarrhea (ICD-10 - K52.9) Patient will obtain a sample for a TEN stool panel. 06/28/2024 Chronic diarrhea (ICD-10 - K52.9) 07/03/2024 Elevated ALT measurement (ICD-10 - R74.01) 06/23/2024 Bloating (ICD-10 - R14.0) 06/23/2024 Post depression (ICD-10 - F53.0) Can likely start on sertraline but we will await lab results first. Plan Of Treatment No Information Insurance Providers Payer Name Payer Address Payer Phone Subscriber Number Group Number Insured Name Patient Relationship to Insured Coverage Start Date Coverage End Date [employer] [address] [place] [address] [id number] ANNIE JOHNSON Self - patient is the insured Medical (General) History Medical History History ICD Code type 1 diabetes, followed by Endo thyroid problems cholestasis of (2nd ) mild preeclampsia (1st ) Surgical History Surgery Date(Month/Year) wisdom teeth extracted 07/2011 Hospitalization History Reason Date(Month/Year) Viral infection Feb 2007
[2024-12-05 13:38] VITALS: BMI 29.1
== END 2024-12-05 23:59 | disposition home or self-care (01) ==
LOC: DIETICIAN 12:48
PROVIDERS: PCP Family Medicine; Visit Provider Nurse Practitioner Family
DX: K90.0 Celiac disease (principal); K90.49 Malabsorption due to intolerance, not elsewhere classified
CPT/HCPCS: 97802

== ENCOUNTER 2024-12-07 12:58 | Outpatient (CLI) | payer BC, SELFPAY ==
--- OUTSIDE RECORDS SUMMARY | 2024-06-28 11:30 | XMS_ITS ---
Author Organization [facility] Address [facility] [facility] [address] [place] [id number] Care Team Providers Care Corporate Communications Specialist Name Role Phone Tone Jean Primary Care Provider [phone] Katelyn Bernal [phone] Results Component Value Reference Range Notes TEN-stool panel Reviewed date:07/05/2024 09:40:38 AM Interpretation:specimen rejected Performing Lab: Notes/Report: specimen rejected REASON FOR VISIT stool sample Encounters Encounter Location Date Provider Diagnosis [facility] [address] [place] [id number] 06/28/2024 Katelyn Bernal Chronic diarrhea K52 .9 Assessments Encounter Date Diagnosis (ICD Code) Assessment Notes Treatment Notes Treatment Clinical Notes Section Notes 06/28/2024 Chronic diarrhea (ICD-10 - K52.9) Plan Of Treatment No Information Progress Notes * ANNIE MARIEDOB: 7 (29 yo F)Acc No.[id number]:06/28/2024 Patient: ANNIE BLACKWELL LORRAINE Provider: CESIA Silverman :1995 A ge:28 Y S ex:Female Date:06/28/2024 Address:[address] [place], [place] [phone] Pcp:Tone Jean Subjective: * Chief Complaints: * 1 . Stool sample. * Medical History: Objective: * Vitals: Assessment: * Assessment: 1. C hronic diarrhea - K52.9 Plan: * Treatment: * Billing Information: * Visit Code: * Procedure Codes: * Electronic signature of CESIA Godfrey on 12/07/2024 at 01:02 PM EDT Sign off status: Pending * Provider: CESIA Silverman Date: 0 06/28/2024 Generated for Chan aguilar/Layo/Syed on: 0 12/07/2024 01:02 PM EDT
--- OUTSIDE RECORDS SUMMARY | 2024-07-03 12:00 | XMS_ITS ---
Author Organization [facility] Address [address] [place] [id number] Care Team Providers Care Dosimetrist Name Role Phone Tone Jean Primary Care Provider [phone] JayKatelyn oconnell Unavailable [phone] Results Component Value Reference Range Notes P-Comprehensive Metabolic Pa bhargavi (CMP) Reviewed date:07/05/2024 03:21:18 PM Interpretation: Performing Lab: Notes/Report: Test performed by [facility] [address] [place] [address] , [address], [place] [address] Ganesh Finley MD, Unit Technician CLIA: [id number] Sodium 139 135-145 mmol/L Potassium 4.3 3.5-5.3 [...] Interpretation: Performing Lab: Notes/Report: Test performed by [facility] [address] [facility] , [address], [place] [address] Ganesh Finley MD, Unit Technician CLIA: [id number] Calculated Calcium 8.5 8.5-10.3 mg/dL REASON FOR VISIT BLOOD WORK Encounters Encounter Location Date Provider Diagnosis [facility] [address] [place] [id number] 07/03/2024 Katelyn Bernal Elevated ALT measure ment R74.01 Assessments Encounter Date Diagnosis (ICD Code) Assessment Notes Treatment Notes Treatment Clinical Notes Section Notes 07/03/2024 Elevated ALT measurement (ICD-10 - R74.01) Plan Of Treatment No Information Progress Notes * ANNIE MARIE LORRAINEDOB: 7 (29 yo F)Acc No.[id number]:07/03/2024 Patient: ANNIE BLACKWELL Provider: CESIA Silverman :1995 A ge:28 Y S ex:Female Date:07/03/2024 Address:[address] [place] [address] Pcp:Tone Jean Subjective: * Chief Complaints: * [...] alculated Calcium 8.5 8.5-10.3 - mg/dL * [facility], IT support 07/05/2024 06:05:09 : This order was created by the Interface.Katelyn Bernal 07/05/2024 3:21:02 PM > discussed with patient * Billing Information: * Visit Code: * Procedure Codes: * Electronic signature of CESIA Godfrey on 12/07/2024 at 01:01 PM EDT Sign off status: Pending * Provider: CESIA Silverman Date: 0 07/03/2024 Generated for Chan aguilar/Layo/eTransmitting on: 0 12/07/2024 01:01 PM EDT
--- OUTSIDE RECORDS SUMMARY | 2024-12-05 09:51 | XMS_ITS ---
Author Organization [facility] Address [address] [facility] [address] [place] [id number] Care Team Providers Care Skatesman Name Role Phone Tone Jean Primary Care Provider [phone] REASON FOR VISIT lab order Encounters Encounter Location Date Provider Diagnosis Abby [address] [place] [id number] 12/05/2024 Tone Jean Weight gain R63.5 Assessments Encounter Date Diagnosis (ICD Code) Assessment Notes Treatment Notes Treatment Clinical Notes Section Notes 12/05/2024 Weight gain (ICD-10 - R63.5) Plan Of Treatment Pending Test Test Name Order Date H-Thyroid panel 12/05/2024 Progress Notes * ANNIE MARIE LORRAINEDOB: 7 (29 yo F)Acc No.[id number]:12/05/2024 Patient: ANNIE BLACKWELL LORRAINE :1995 A ge:29 Y S ex:Female Address:[address] [place] [address] Subjective: * Chief Complaints: * L ab order * Medical History: * Surgical History: * Hospitalization/Major Diagno stic Procedure: * Medications: Objective: * Vitals: * Physical Examination: Assessment: * Assessment: 1. W eight gain - R63.5 Plan: * Treatment: * Procedure Codes: * true * Date: Generated for Printi ng/Faxing/eTransmitting on: 0 12/07/2024 01:02 PM EDT
--- OUTSIDE RECORDS SUMMARY | 2024-12-07 13:02 | XMS_ITS | Patient Health Record ---
Author Organization [facility] Address [address] [place] [id number] Care Team Providers Care Claims Representative Name Role Phone Tone Jean Primary Care Provider [phone] Katelyn Bernal Unavailable [phone] Allergies No Known Allergies Results Component Value Reference Range Notes P-Comprehensive Metabolic Pa bhargavi (CMP) Reviewed date:07/05/2024 03:21:18 PM Interpretation: Performing Lab: Notes/Report: Test performed by [facility] [address] [place] [address] , [address], [place] [address] Ganesh Finley MD, Vegetable Cook CLIA: [id number] Sodium 139 135-145 mmol/L Potassium 4.3 3.5-5.3 [...] Interpretation: Performing Lab: Notes/Report: Test performed by [facility] [address] [place] [address] , [place] [address] Ganesh Finley MD, Vegetable Cook CLIA: [id number] Calculated Calcium 8.5 8.5-10.3 mg/dL Ultrasound : Right Upper Jovan drcarina Reviewed date:07/04/2024 03:51:17 PM Interpretation:fatty liver Performing Lab: Notes/Report: fatty liver Calculated Calcium Reviewed date:06/28/2024 09:14:41 AM Interpretation: Performing Lab: Notes/Report: Test performed by [facility] [address] [place] [address] , [place] [address] Ganesh Finley MD, Vegetable Cook CLIA: [id number] Calculated Calcium 9.0 8.5-10.3 mg/dL P-Hepatitis Acute Profile Reviewed date:06/28/2024 09:14:41 AM Interpretation: Performing Lab: Notes/Report: Test performed by [facility] [address] [place] [address] , [place] [address] Ganesh Finley MD, Vegetable Cook CLIA: [id number] Hepatitis A Antibody, IgM Nonreactive Nonreactive Hepatitis B Core Antibody (HBcAb) IgM Nonreactive Non reactive Hepatitis B Surface Antigen (HBsAg) Nonreactive Nonre active Hepatitis C Antibody (HCV) IgG Nonreactive Nonreactiv e P-Comprehensive Metabolic Pa bhargavi (CMP) Reviewed date:06/28/2024 09:14:41 AM Interpretation: Performing Lab: Notes/Report: Test performed by [facility] [address] [place] [address] , [place] [address] Ganesh Finley MD, Vegetable Cook CLIA: [id number] Sodium 141 135-145 mmol/L Potassium 4.0 3.5-5.3 [...] <0.2 <0.2-1.2 mg/dL A/G Ratio 1.1 1.1-2.5 TEN-stool panel Reviewed date:07/05/2024 09:40:38 AM Interpretation:specimen rejected Performing Lab: Notes/Report: specimen rejected Medications Medication SIG (Take, Route, Frequency, Duration) Notes Start Date End Date Status Spironolactone 25 MG Take 1 tablet by [facility] once daily for 30 Active 28-0.8 MG [...] Problem Type I diabetes mellitus without complication (678916031) Type I [insulin dependent] [IDDM] [juvenile type] (250.01) Active confirmed Low Problem Iron deficiency anemia (61239206) IRON DEFIC ANEMIA NOS (280.9) Active confirmed Problem 856785698 Type 1 diabetes mellitus without complication (E10.9) Active confirmed Problem 82555174 Type 1 diabetes mellitus (E10.9) Active confirmed Vital Signs Blood pressure diastolic 60 mm Hg 06/23/2024 Height 60.50 in 06/23/2024 Blood pressure systolic 100 mm Hg 06/23/2024 Weight 132.0 lbs 06/23/2024 BMI 25.35 kg/m2 06/23/2024 Encounters Encounter Location Date Provider Diagnosis [place] [address] [place] [id number] 06/23/2024 Katelyn Bernal Elevated liver function tests R79.89 ; Chronic diarrhea K52.9 ; Bloating R14.0 and Post depression F53.0 [facility] [address] [place], [place] [id number] 06/28/2024 Katelyn Bernal Chronic diarrhea K52 .9 [facility] [address] [place], [place] [id number] 07/03/2024 Katelyn Bernal Elevated ALT measurement R74.01 [facility] [address] [place], [place] [id number] 06/27/2024 Katelyn Bernal [facility] [address] [place], [place] [id number] 07/04/2024 Katelyn Bernal [facility] [address] [place], [place] [id number] 12/05/2024 R Pantera [facility] Weight gain R63.5 Assessments Encounter Date Diagnosis (ICD Code) Assessment Notes Treatment Notes Treatment Clinical Notes Section Notes 06/23/2024 Elevated liver function tests (ICD-10 - R79.89) Will recheck LFT's as well as a hepatitis panel. Will get a RUQ U/S and make GI referral. 06/23/2024 Chronic diarrhea (ICD-10 - K52.9) Patient will obtain a sample for a TEN stool panel. 12/05/2024 Weight gain (ICD-10 - R63.5) 06/28/2024 Chronic diarrhea (ICD-10 - K52.9) 07/03/2024 Elevated ALT measurement (ICD-10 - R74.01) 06/23/2024 Bloating (ICD-10 - R14.0) 06/23/2024 Post depression (ICD-10 - F53.0) Can likely start on sertraline but we will await lab results first. Plan Of Treatment Pending Test Test Name Order Date H-Thyroid panel 12/05/2024 Insurance Providers Payer Name Payer Address Payer Phone Subscriber Number Group Number Insured Name Patient Relationship to Insured Coverage Start Date Coverage End Date [employer] [address] [place] [address] [phone] [id number] ANNIE JOHNSON Self - patient is the insured Medical (General) History Medical History History ICD Code type 1 diabetes, followed by Endo thyroid problems cholestasis of (2nd ) mild preeclampsia (1st ) Surgical History Surgery Date(Month/Year) wisdom teeth extracted 07/2011 Hospitalization History Reason Date(Month/Year) Viral infection Feb 2007
[2024-12-07 14:29] LABS: Triiodothryronine (T3) Uptake 34 % (23.5-40.5)
[2024-12-07 14:30] LABS: Free Thyroxine Index 3.6 ug/dL (5.93-13.13); T4 (Thyroxine) 10.7 ug/dl (5.53-11.0)
[2024-12-07 14:43] LABS: Thyroid Stimulating Hormone < 0.02 uIU/mL (0.465-4.68)
== END 2024-12-07 23:59 | disposition home or self-care (01) ==
LOC: LAB 12:59
PROVIDERS: PCP Family Medicine; Visit Provider Family Medicine
DX: R63.5 Abnormal weight gain (principal)
CPT/HCPCS: 36415; 84436; 84443; 84479

== ENCOUNTER 2025-03-28 11:37 | Outpatient (CLI) | payer BC, SELFPAY ==
[2025-03-28 12:13] LABS: Hematocrit 44.9 % (37.0-47.0); Hemoglobin 15.1 g/dL (12.2-16.2); Immature Granulocytes % 0.2 %; Mean Corpuscular HGB Conc 33.6 g/dL (31.8-35.4); Mean Corpuscular Hemoglobin 30.3 pg (27.0-31.2); Mean Corpuscular Volume 90.0 fl (81-99); Nucleated Red Blood Cells % 0 %; Platelet Count 316 K/mm3 (142-424); Red Blood Count 4.99 M/mm3 (4.20-5.40); Red Cell Distribution Width-SD 39.8 fL; White Blood Count 5.4 K/mm3 (4.8-10.8)
[2025-03-28 13:36] LABS: Alanine Aminotransferase 29 U/L (12-78); Albumin Level 4.5 g/dl (3.5-5.0); Albumin/Globulin Ratio 1.6 (1.1-1.8); Alkaline Phosphatase 147 U/L (38-126); Anion Gap 15.5 mEq/L (5-15); Aspartate Amino Transferase 28 U/L (14-36); Bilirubin,Total 0.7 mg/dl (0.2-1.3); Blood Urea Nitrogen 13 mg/dl (7-17); Calcium 9.5 mg/dl (8.4-10.2); Carbon Dioxide 29 mmol/L (22.0-30.0); Chloride 101 mmol/L (98-107); Creatinine,Serum 0.60 mg/dl (0.52-1.04); Estimated Glomerular Filt Rate 119 ml/min (>60); GFR (African American) 144 ML/MIN (>60); Globulin 2.8 g/dL (1.3-3.2); Glucose 112 mg/dl (74-100); Potassium 4.5 mmoL/L (3.5-5.1); Sodium 141 mmol/L (136-145); Total Protein,Serum 7.3 g/dl (6.3-8.2)
[2025-03-28 18:56] LABS: 25-OH Vitamin D, Total 45.2 ng/mL (30-100)
[2025-03-28 22:58] LABS: Iron 116 ug/dL (37-170)
[2025-03-28 23:08] LABS: Total Iron Binding Capacity 307 ug/dL (265-497)
[2025-03-28 23:34] LABS: Ferritin 54.0 ng/ml (6.24-137)
[2025-03-28 23:46] LABS: Vitamin B12 966 pg/mL (239-931)
== END 2025-03-28 23:59 | disposition home or self-care (01) ==
LOC: LAB 11:37
PROVIDERS: PCP Family Medicine; Visit Provider Nurse Practitioner Family
DX: K90.0 Celiac disease (principal)
CPT/HCPCS: 36415; 80053; 82306; 82607; 82728; 83540; 83550; 85025; 86364